=== PATIENT | female | born 1990 | race Two or more races ===

== ENCOUNTER → 2025-04-05 | Outpatient (BNVA) | payer MEDICAID, SELFPAY | END | disposition home or self-care (01) | PROVIDERS: PCP Nurse Practitioner Family; Referring Provider Nurse Practitioner Family; Visit Provider Nurse Practitioner Family | DX: D50.8 Other iron deficiency anemias (principal); I10 Essential (primary) hypertension | CPT/HCPCS: 99214 ==

== ENCOUNTER → 2025-04-12 | Outpatient (BNVA) | payer MEDICAID, SELFPAY | END | disposition home or self-care (01) | PROVIDERS: PCP Nurse Practitioner Family; Referring Provider Nurse Practitioner Family; Visit Provider Nurse Practitioner Family | DX: Z71.2 Person consulting for explanation of examination or test findings (principal); D50.8 Other iron deficiency anemias | CPT/HCPCS: 99212; G0463 ==

== ENCOUNTER → 2025-05-01 | Outpatient (BNVA) | payer MEDICAID, SELFPAY | END | disposition home or self-care (01) | PROVIDERS: PCP Nurse Practitioner Family; Referring Provider Nurse Practitioner Family; Visit Provider Nurse Practitioner Family | DX: Z00.01 Encounter for general adult medical examination with abnormal findings (principal); I10 Essential (primary) hypertension; E66.9 Obesity, unspecified; Z13.220 Encounter for screening for lipoid disorders; R51.9 Headache, unspecified; Z11.3 Encounter for screening for infections with a predominantly sexual mode of transmission; Z80.3 Family history of malignant neoplasm of breast; N92.0 Excessive and frequent menstruation with regular cycle; Z71.85 Encounter for immunization safety counseling; Z72.3 Lack of physical exercise; E55.9 Vitamin D deficiency, unspecified; E78.5 Hyperlipidemia, unspecified; E50.8 Other manifestations of vitamin A deficiency; J30.9 Allergic rhinitis, unspecified; Z13.1 Encounter for screening for diabetes mellitus; Z68.31 Body mass index [BMI] 31.0-31.9, adult | CPT/HCPCS: 99173; 99215 ==

== ENCOUNTER → 2025-05-12 | Outpatient (BNVA) | payer MEDICAID, SELFPAY | END | disposition home or self-care (01) | PROVIDERS: PCP Nurse Practitioner Family; Referring Provider Nurse Practitioner Family; Visit Provider Nurse Practitioner Family | DX: Z71.2 Person consulting for explanation of examination or test findings (principal); D50.8 Other iron deficiency anemias; E55.9 Vitamin D deficiency, unspecified; E78.5 Hyperlipidemia, unspecified; N39.0 Urinary tract infection, site not specified | CPT/HCPCS: 99212; G0463 ==

== ENCOUNTER → 2025-06-22 | Outpatient (CLI) | payer MEDICAID, SELFPAY ==
--- NOTE | 2025-06-22 14:30 | XR_ITS ---
Examination: Pelvic ultrasound, transabdominal, complete Technique: Transabdominal ultrasound of the pelvis performed using grayscale imaging Date and time of exam: June 22, 2025, 1454 hours INDICATIONS: Irregular heavy menses 2 years FINDINGS: Uterus 9.7 cm endometrial stripe 1.1 cm No uterine mass or intrauterine gestation Right ovary 4.2 cm arterial flow Left ovary 3.9 cm arterial flow, 30 x 21 x 29 mm simple cyst IMPRESSION: No uterine mass or intrauterine gestation Left ovarian simple cyst 30 x 21 x 29 mm
== END | disposition home or self-care (01) ==
PROVIDERS: PCP Nurse Practitioner Family; Referring Provider Nurse Practitioner Family; Visit Provider Nurse Practitioner Family
DX: N83.292 Other ovarian cyst, left side (principal)
CPT/HCPCS: 76856

== ENCOUNTER → 2025-06-26 | Outpatient (BNVA) | payer MEDICAID, SELFPAY | END | disposition home or self-care (01) | PROVIDERS: PCP Nurse Practitioner Family; Referring Provider Nurse Practitioner Family; Visit Provider Nurse Practitioner Family | DX: Z71.2 Person consulting for explanation of examination or test findings (principal); N92.0 Excessive and frequent menstruation with regular cycle; N83.292 Other ovarian cyst, left side; I10 Essential (primary) hypertension; D50.8 Other iron deficiency anemias | CPT/HCPCS: 99213 ==